=== PATIENT | female | born 1940 | race Caucasian/White ===

== ENCOUNTER 2016-12-02 10:51 | Emergency (ER) | payer MEDICARE ==
--- NOTE | 2016-12-02 11:23 | ER Document Report ---
ED General - General Stated Complaint: ALTERED MENTAL STATUS Mode of Arrival: Medic Information source: Emergency Med Personnel, Outside Facility Records - RN contacted RN at [facility] Notes: Patient is very calm laying in the bed. Denies c/o. Patient has history of dementia. According to EMS report and report from RN at [facility] patient has become more aggressive and combative today. Anita RN reports RN from [facility] stated patient is not taking her medications. They report yesterday she defecated and urinated on the floor and then crawled around in it Patient was sent to the emergency department for altered mental status. No reports of f/n/v/d. No reports of trauma, fall. TRAVEL OUTSIDE OF THE [place] IN LAST 30 DAYS: No - HPI Onset: Yesterday Quality of pain: No pain Associated symptoms: None Similar symptoms previously: Yes - Related Data Allergies/Adverse Reactions: chlorpromazine [From Thorazine] Allergy (Verified 03/25/16 15:32) codeine Allergy (Verified 03/25/16 15:32) Corticosteroids (Glucocorticoids) Allergy (Verified 03/25/16 15:35) divalproex sodium [From Depakote] Allergy (Verified 03/25/16 15:32) lithium Allergy (Verified 03/25/16 15:30) paraben Allergy (Verified 03/25/16 15:35) Penicillins Allergy (Verified 03/25/16 15:32) Phenothiazines Allergy (Verified 03/25/16 15:35) prochlorperazine [From Compazine] Allergy (Verified 03/25/16 15:32) propylene glycol Allergy (Verified 03/25/16 15:35) quetiapine [From Seroquel] Allergy (Verified 03/25/16 15:32) tioconazole [From Monistat 1 (tioconazole)] Allergy (Verified 03/25/16 15:32) trazodone Allergy (Verified 03/25/16 15:32) valproic acid Allergy (Verified 03/25/16 15:35) Past Medical History - General Information source: Patient - Social History Smoking Status: Unknown if Ever Smoked Cigarette use (# per day): No Frequency of alcohol use: None Drug Abuse: None Lives with: Longterm - [facility] Family History: Reviewed & Not Pertinent Patient has suicidal ideation: No Patient has homicidal ideation: No Psychiatric Medical History: Reports: Hx Bipolar Disorder, Hx Dementia Surgical Hx: Negative Review of Systems - Review of Systems Notes: Review HPI for review of systems., All other systems negative Physical Exam - Vital signs Vitals: Temp Pulse Resp BP Pulse Ox 97.8 F 71 20 145/56 H 100 12/02/16 11:30 12/02/16 11:30 12/02/16 11:30 12/02/16 11:30 12/02/16 11:30 - Notes Notes: PHYSICAL EXAMINATION: GENERAL: Wearing a straw hat, well-appearing and in no acute distress HEAD: Atraumatic, normocephalic. EYES: Pupils equal round and reactive to light, extraocular movements intact, sclera anicteric, conjunctiva are normal. ENT: nares patent, oropharynx clear without exudates. Moist mucous membranes. NECK: Normal range of motion, supple without lymphadenopathy LUNGS: CTAB and equal. No wheezes rales or rhonchi. HEART: Regular rate and rhythm without murmurs ABDOMEN: Soft, no tenderness. No guarding, no rebound EXTREMITIES: Normal range of motion, no pitting edema. No cyanosis. NEUROLOGICAL: Cranial nerves grossly intact. Normal sensory/motor exams. PSYCH: Normal mood, normal affect. calm, does not answer questions appropriately , unsure of where she lives, time, place, does answer to self SKIN: Warm, Dry, normal turgor, no rashes or lesions noted Course - Re-evaluation Re-evalutation: 12/02/16 11:45 Will obtain baseline labs, UA to rule out infectious reason for increase in aggression. 12/02/16 12:08 SELAM Monzon, reports she has taken care of the patient while working at [employer]. She reports this is patients mentation. Patient does get irritated at times but if you let her calm down she responds easily. 12/02/16 14:19 Labs unremarkable UA shows leukocytes with small amount WBC 12/02/16 14:53 Patient was refusing to take Septra. We crusted up and put in applesauce and patient still refusing. CRP CT reports she was done patient to take medications while at [email or web address]. Will attempt to give it to her again. - Vital Signs Vital signs: Temp Pulse Resp BP Pulse Ox 97.8 F 71 20 116/68 100 12/02/16 11:30 12/02/16 11:30 12/02/16 11:30 12/02/16 15:16 12/02/16 11:30 - Laboratory Result Diagrams: 12/02/16 13:35 12/02/16 13:35 Laboratory results interpreted by me: 12/02/16 12/02/16 12/02/16 13:35 13:35 13:35 Seg Neutrophils % 36.2 L Lymphocytes % 50.0 H Sodium 146.2 H Calcium 10.7 H Ur Leukocyte Esterase SMALL H Discharge - Discharge Clinical Impression: Dementia Qualifiers: Dementia type: unspecified type Dementia behavioral disturbance: without behavioral disturbance Qualified Code(s): F03.90 - Unspecified dementia without behavioral disturbance Altered mental status Qualifiers: Altered mental status type: unspecified Qualified Code(s): R41.82 - Altered mental status, unspecified UTI (urinary tract infection) Qualifiers: Indwelling urinary catheter type: unspecified Encounter type: initial encounter Condition: Stable Disposition: SNF Instructions: Urinary Tract Infection ([facility]), Trimethoprim-Sulfa ([facility]) Additional Instructions: *You have been evaluated for altered mental status, UTI, history of dementia *Take medication as prescribed *Push fluids *Follow up with her primary care provider within one week for a recheck *Plan urine recheck in one week *Return to ED for worsening condition, changes, needs Prescriptions: Sulfamethoxazole/Trimethoprim [Septra-Ds 800-160 mg Tablet] 1 tab PO BID #10 tablet Referrals: IRMA SAUL MD [Primary Care Provider] - Follow up in 1 week
[2016-12-02 13:50] LABS: ABSOLUTE BASOPHILS # (AUTO) 0.1 10^3/uL (0.0-0.2); ABSOLUTE EOSINOPHILS # (AUTO) 0.4 10^3/uL (0.0-0.6); ABSOLUTE LYMPHOCYTES (AUTO) 3.1 10^3/uL (0.5-4.7); ABSOLUTE MONOCYTES (AUTO) 0.4 10^3/uL (0.1-1.4); ABSOLUTE NEUT (AUTO) 2.2 10^3/uL (1.7-8.2); APPEARANCE,URINE CLEAR; BILIRUBIN,URINE NEGATIVE (NEGATIVE); EOSINOPHILS % (AUTO) 5.8 % (0-6); GLUCOSE, URINE NEGATIVE (NEGATIVE); HEMATOCRIT 38.6 % (36.0-47.0); HEMOGLOBIN 13.2 g/dL (12.0-15.5); KETONES,URINE NEGATIVE (NEGATIVE); LEUKOCYTE ESTERASE,URINE SMALL (NEGATIVE); MEAN CORPUSCULAR HEMOGLOBIN 32.4 pg (27.0-33.4); MEAN CORPUSCULAR HGB CONC 34.3 g/dL (32.0-36.0); MEAN CORPUSCULAR VOLUME 94 fl (80-97); NITRITE,URINE NEGATIVE (NEGATIVE); PROTEIN,URINE NEGATIVE (NEGATIVE); RED BLOOD COUNT 4.09 10^6/uL (3.72-5.28); RED CELL DISTRIBUTION WIDTH 12.6 % (11.5-14.0); SEGMENTED NEUTROPHILS % (AUTO) 36.2 % (42-78); URINE SPECIFIC GRAVITY 1.005; UROBILINOGEN,URINE NEGATIVE mg/dL (<2.0); WHITE BLOOD COUNT 6.1 10^3/uL (4.0-10.5)
[2016-12-02 14:08] LABS: ALANINE AMINOTRANSFERASE 22 U/L (9-52); ALBUMIN 4.4 g/dL (3.5-5.0); ALKALINE PHOSPHATASE 87 U/L (38-126); ANION GAP 12 (5-19); ASPARTATE AMINO TRANSFERASE 26 U/L (14-36); BILIRUBIN,DIRECT 0.1 mg/dL (0.0-0.4); BILIRUBIN,TOTAL 0.6 mg/dL (0.2-1.3); BLOOD UREA NITROGEN 17 mg/dL (7-20); CALCIUM 10.7 mg/dL (8.4-10.2); CARBON DIOXIDE 29 mmol/L (22-30); CHLORIDE 105 mmol/L (98-107); CREATINE KINASE 41 U/L (30-135); GLUCOSE 97 mg/dL (75-110); SODIUM 146.2 mmol/L (137-145); TOTAL PROTEIN 7.6 g/dL (6.3-8.2)
[2016-12-02 14:21] LABS: TROPONIN I < 0.012 ng/mL
[2016-12-02] MEDS ORDERED: SULFAMETHOXAZOLE/TRIMETHOPRIM 800-160 MG TABLET PO ONE ×2 (14:30→14:53)
[2016-12-02 15:34] VITALS: BP 116/68
== END 2016-12-02 15:15 ==
LOC: ER 10:51
DX: F03.90 Unspecified dementia, unspecified severity, without behavioral disturbance, psychotic disturbance, mood disturbance, and anxiety (principal); R41.82 Altered mental status, unspecified; N39.0 Urinary tract infection, site not specified; Z88.6 Allergy status to analgesic agent; Z88.0 Allergy status to penicillin
CPT/HCPCS: 99285; 36415; 87086; 82553; 82550; 85025; 87088; 80053; 81001; 84484; A9270